=== PATIENT | male | born 1965 ===

== ENCOUNTER → 2017-08-09 | Outpatient (CLI) | payer OTHER | END | disposition home or self-care (01) | LOC: TOM 06:33 | DX: J84.10 Pulmonary fibrosis, unspecified (principal) ==

== ENCOUNTER → 2017-08-09 | Outpatient (CLI) | payer OTHER | END | disposition home or self-care (01) | LOC: SONOGRAMA 07:05 | DX: C61 Malignant neoplasm of prostate (principal) ==

== ENCOUNTER 2017-10-31 06:29 | Outpatient (CLI) | payer OTHER | END 2017-10-31 14:28 | disposition home or self-care (01) | LOC: SONOGRAMA 06:29 | DX: R10.12 Left upper quadrant pain (principal) ==

== ENCOUNTER → 2018-08-22 | Outpatient (CLI) | payer OTHER | END | disposition home or self-care (01) | LOC: TOM 08-18 06:37 → SONOGRAMA 08-18 06:37 → TOM 09:53 | DX: S50.02XA Contusion of left elbow, initial encounter (principal); R10.10 Upper abdominal pain, unspecified; R31.29 Other microscopic hematuria ==

== ENCOUNTER 2020-11-29 09:27 | Emergency (ER) | payer OTHER ==
[~2020-11-29] VITALS: Ht 188 cm; Wt 154.2 kg
[2020-11-29] MEDS ORDERED: JANUMET 50-1,01 EACH PO (09:43)
[2020-11-29] MEDS ORDERED: CYCLOBENZAPRINE10 MG PO (15:35)
[2020-11-29] MEDS ORDERED: DICLOFENAC POTA50 MG PO (15:35)
== END 2020-11-29 15:53 | disposition home or self-care (01) ==
LOC: ER 09:27
DX: S80.02XA Contusion of left knee, initial encounter (principal); S80.12XA Contusion of left lower leg, initial encounter; W18.39XA Other fall on same level, initial encounter; Y93.89 Activity, other specified; Y92.098 Other place in other non-institutional residence as the place of occurrence of the external cause; Y99.8 Other external cause status

== ENCOUNTER → 2020-12-29 06:26 | Outpatient (CLI) | payer OTHER ==
[~2020-12-29 06:26] MED LIST: CYCLOBENZAPRINE10 MG PO; DICLOFENAC POTA50 MG PO; JANUMET 50-1,01 EACH PO
== END | disposition home or self-care (01) ==
LOC: MRI 06:26
PROVIDERS: ATTEND Specialist
DX: S83.242A Other tear of medial meniscus, current injury, left knee, initial encounter (principal); M23.8X2 Other internal derangements of left knee
CPT/HCPCS: 73721

== ENCOUNTER 2021-07-21 06:45 | Outpatient (CLI) | payer OTHER | END 2021-07-21 07:15 | disposition home or self-care (01) | LOC: MRI 06:45 | PROVIDERS: ATTEND General Practice | DX: M25.562 Pain in left knee (principal); S83.422A Sprain of lateral collateral ligament of left knee, initial encounter | CPT/HCPCS: 73721 ==

== ENCOUNTER → 2022-03-07 | Outpatient (CLI) | payer OTHER | END | disposition home or self-care (01) | LOC: TOM 06:20 | PROVIDERS: ATTEND Specialist | DX: R91.1 Solitary pulmonary nodule (principal) ==

== ENCOUNTER 2022-05-09 08:28 | Outpatient (CLI) | payer OTHER | END 2022-05-09 09:00 | disposition home or self-care (01) | LOC: MRI 08:28 | PROVIDERS: ATTEND General Practice | DX: M25.562 Pain in left knee (principal) | CPT/HCPCS: 73721 ==

== ENCOUNTER 2022-07-18 06:28 | Outpatient (CLI) | payer OTHER | END 2022-07-18 07:00 | disposition home or self-care (01) | LOC: MRI 06:28 | PROVIDERS: ATTEND Psychiatry & Neurology Neurology | DX: D32.0 Benign neoplasm of cerebral meninges (principal); R55 Syncope and collapse | CPT/HCPCS: 70553 ==

== ENCOUNTER → 2022-11-22 | Outpatient (CLI) | payer OTHER | END | disposition home or self-care (01) | LOC: TOM 07:40 | PROVIDERS: ATTEND Internal Medicine Cardiovascular Disease | DX: I67.9 Cerebrovascular disease, unspecified (principal) ==

== ENCOUNTER → 2023-03-13 | Outpatient (CLI) | payer OTHER | END | disposition home or self-care (01) | LOC: MRI 06:34 | DX: M25.562 Pain in left knee (principal) | CPT/HCPCS: 73721 ==

== ENCOUNTER 2023-11-19 06:18 | Outpatient (CLI) | payer OTHER | END 2023-11-19 06:50 | disposition home or self-care (01) | LOC: MRI 06:18 | PROVIDERS: ATTEND Psychiatry & Neurology Neurology | DX: D32.0 Benign neoplasm of cerebral meninges (principal); G47.33 Obstructive sleep apnea (adult) (pediatric); I48.20 Chronic atrial fibrillation, unspecified; R55 Syncope and collapse | CPT/HCPCS: 70553 ==

== ENCOUNTER → 2024-10-06 07:39 | Outpatient (CLI) | payer OTHER | END | disposition home or self-care (01) | LOC: NUCLEAR 07:39 | PROVIDERS: ATTEND General Practice | DX: I87.2 Venous insufficiency (chronic) (peripheral) (principal); I73.9 Peripheral vascular disease, unspecified ==